=== PATIENT | male | born 1960 | race Caucasian/White ===

== ENCOUNTER 2016-12-15 10:58 | Emergency (ER) | payer SELFPAY ==
[~2016-12-15] VITALS: Ht 175.3 cm; Wt 85.0 kg
[2016-12-15 11:03] VITALS: Ht 175.3 cm; Wt 85.0 kg
[2016-12-15 11:49] VITALS: BP 140/102; RESP 18; TEMP 98.2
--- NOTE | 2016-12-15 12:00 | ERD ---
ER Documentation Chief Complaint Date/Time DATE: 12/15/16 TIME: 11:56 Chief Complaint SENT BY PMD FOR WBC 23,000 , TAKING ANTIBIOTICS FOR UTI HPI Patient is a 56-year-old male with hypertension who presents with a elevated white blood cell count. The patient said that he has had an infection in his urine for 1 week. He saw his primary doctor yesterday and was given an antibiotic although he does not know what antibiotic this was. He also had blood test drawn and today the results came back and showed a white blood cell count of 23,000. Because of this the primary doctor called him and told him he needed to go to the emergency department immediately. He says "I feel better now that I have in the whole week". He had subjective fever but no fever in the emergency department. He only started his antibiotics yesterday. Upon review of old medical records this is the patient's first visit to the ER. ROS All systems reviewed and are negative except as per history of present illness. Allergies Allergies: Coded Allergies: No Known Allergy (Unverified , 12/15/16) PMhx/Soc Medical and Surgical Hx: pt denies Medical Hx, pt denies Surgical Hx Hx Alcohol Use: No Hx Substance Use: No Hx Tobacco Use: No Smoking Status: Never smoker FmHx Family History: diabetes Physical Exam Vitals Vital Signs Date Time Temp Pulse Resp B/P Pulse Ox O2 Delivery O2 Flow Rate FiO2 12/15/16 11:49 98.2 18 140/102 97 Room Air 12/15/16 11:03 98.3 85 18 176/98 98 Physical Exam Const: No acute distress, well-appearing Head: Atraumatic Eyes: Normal Conjunctiva ENT: Normal External Ears, Nose and Mouth. Neck: Full range of motion..~ No meningismus. Resp: Clear to auscultation bilaterally Cardio: Regular rate and rhythm, no murmurs Abd: Soft, non tender, non distended. Normal bowel sounds Skin: No petechiae or rashes Back: No midline or flank tenderness Ext: No cyanosis, or edema Neur: Awake and alert Psych: Normal Mood and Affect Procedures/MDM Smoking Cessation Therapy: Pt. was lectured for greater than 3 minutes on the health risks of continued smoking and the benefits of cessation. Patient is a 56-year-old male who presents with acute cystitis. The patient was diagnosed yesterday with acute cystitis and was given antibiotics and he says that he is feeling better. The patient has no fever in the emergency department and is not tachycardic. He says that he feels well. He does not want to stay in the hospital. Given the fact that he is otherwise healthy without signs of systemic infection I do believe that outpatient oral antibiotics are appropriate. He agrees with this plan. He can follow-up with his primary doctor within 1 week as needed. He can return for fevers or worsening symptoms. I doubt appendicitis, cholecystitis, or pancreatitis. Departure Diagnosis: Primary Impression: Cystitis Condition: Fair Patient Instructions: Cystitis Referrals: Dr. Alcantara Additional Instructions: Call your primary care doctor TOMORROW for an appointment during the next 1 WEEK.Tell the church secretary that you were referred from this facility.See the doctor sooner or return here if your condition worsens before your appointment time. MAYCOL EDUARDO MD Dec 15, 2016 12:00
== END 2016-12-15 13:10 | disposition home or self-care (01) ==
LOC: E/R 10:58
DX: N30.90 Cystitis, unspecified without hematuria (principal); I10 Essential (primary) hypertension
CPT/HCPCS: 99282